=== PATIENT | female | born 1955 | race Caucasian/White ===

== ENCOUNTER 2022-05-03 06:22 | Day surgery (SDC) | payer MEDICARE, OTHER ==
[~2022-05-03] VITALS: Ht 170.2 cm; Wt 86.0 kg
[~2022-05-03 06:22] MED LIST: BUPROPION XL150 MG PO; CELEXA20 MG PO; CITALOPRAM HBR10 MG PO; DIFLUCAN150 MG PO; OSTERA TABLET1 EACH PO
--- NOTE | 2022-05-03 09:33 | NUR ---
05/03/22 0933 Nohelia Maher 0904 PT ARRIVED IN PACU SLEEPY. ABD SOFT. 0915 DR AT BEDSIDE TALKING WITH PT. 0930 RESTING. REU.
--- NOTE | 2022-05-03 10:07 | NUR ---
PT ALERT, ORIENTED AND HAS HAD PREVIOUS SCOPE-THOUGH OVER 10 YRS AGO. ALL QUESTIONS ASKED ANSWERED. PT REQUESTED PRAYER, WILL FOLLOW
--- NOTE | 2022-05-03 15:35 | OR ---
[facility] [address] [place], [place] [address] Signed DATE OF OPERATION: 05/03/2022 SURGEON: Tata Martinez MD PREOPERATIVE DIAGNOSIS: History of polyps, last colonoscopy greater than 10 years ago. POSTOPERATIVE DIAGNOSIS: Polyps x2 (proximal ascending and proximal descending colon). PROCEDURE: Total colonoscopy to cecum with cold morcellation polypectomy x2. ANESTHESIA: Intravenous sedation; fentanyl 100 mcg and Versed 8 mg. INDICATION: This 66-year-old white woman is a patient of Linda Cam and underwent colonoscopy greater than 10 years ago and was found to have polyps. She is currently symptom free. She understands the risk of bleeding, infection, and perforation related to screening colonoscopy and wished to proceed. FINDINGS: The prep was good. Complete colonoscopy was undertaken to the cecum without question. She had two small polyps, one in the proximal ascending colon and the other in the proximal descending colon. Both were excised with cold morcellation technique. There were no other findings of concern. DESCRIPTION OF PROCEDURE: The patient was brought to the endoscopy suite and placed in lateral decubitus position, given intravenous sedation to the point of slurred speech and nystagmus. Digital rectal examination showed external hemorrhoidal changes. An Olympus video colonoscope was passed in the rectum and manipulated throughout the colon ultimately intubating the cecum itself. The ileocecal valve and appendiceal orifice were normal. Scope was withdrawn and in the proximal ascending colon there was a small polyp, which was somewhat ambiguous in its appearance. Narrow band imaging confirmed it likely to be a polyp. It was excised completely with cold morcellation technique. Further withdrawal of the scope showed no abnormality into the proximal descending colon where clear and obvious small polyp was noted, this was excised with cold morcellation technique as well. Further withdrawal showed no other abnormality. Retroflexed view was normal. Electronically Signed By: TATA MARTINEZ MD 05/03/22 1535 PATIENT NAME: LINDA HEARN OPERATIVE REPORT DATE OF : 55 REPORT #: [id number] PHYSICIAN: TATA MARTINEZ MD PCP: LINDA CAM REPORT IS CONFIDENTIAL AND NOT TO BE RELEASED WITHOUT AUTHORIZATION [facility] [address] [place], [place] [address] Signed The scope was removed and the patient was taken to the recovery room in good condition. CONCLUDING DIAGNOSIS: Polyps x2. PLAN: Recommend repeat colonoscopy in 5 years, sooner if clinically indicated. She will return to the ongoing care of JASPAL Garnett. MD NEERU Friedman/MODL /[id number] cc: JASPAL Garnett Copies: LINDA CAM ~ Electronically Signed By: TATA MARTINEZ MD 05/03/22 1535 PATIENT NAME: LINDA HEARN OPERATIVE REPORT DATE OF : 55 REPORT #: [id number] PHYSICIAN: TATA MARTINEZ MD PCP: LINDA CAM REPORT IS CONFIDENTIAL AND NOT TO BE RELEASED WITHOUT AUTHORIZATION
--- NOTE | 2022-05-04 17:54 | PATH ---
[facility] [address] [place], [place] [address] Signed SPECIMEN(S): A ASCENDING/RIGHT COLON POLYP SPECIMEN(S): B PROXIMAL DESCENDING/LEFT COLON POLYP SPECIMEN SOURCE: A. ASCENDING/RIGHT COLON POLYP B. PROXIMAL DESCENDING/LEFT COLON POLYP CLINICAL HISTORY: Colonoscopy. History of polyps; surveillance. Post: Colon polyps x 2. FINAL PATHOLOGIC DIAGNOSIS: A. Colon, ascending/right, polyp, polypectomy: - Fragments of colonic mucosa with melanosis coli. - Negative for dysplasia or malignancy. B. Colon, proximal descending/left, polyp, polypectomy: - Fragments of tubular adenoma. - Negative for high-grade dysplasia or malignancy. COMMENT: Regarding specimen A: Multiple additional deeper levels were examined. NAL:cml:C2NR MICROSCOPIC EXAMINATION: Histologic sections of all submitted blocks are examined by light microscopy. These findings, together with the gross examination, support the pathologic diagnosis. GROSS DESCRIPTION: Two specimens are received in two containers labeled with "LW." A. The specimen, labeled "LW, 1," and designated on the requisition "ascending/right polypectomy," is received in formalin and consists of six fragments of pink-goddard tissue (0.3 cm in greatest dimension). The specimen is submitted entirely in cassette (A1). B. The specimen, labeled "LW, 2," and designated on the requisition "proximal descending/left polypectomy," is received in formalin and consists of eight fragments of pink-goddard tissue (0.2-0.3 cm in greatest dimension). The specimen is submitted entirely in cassette (B1). AC (under the direct supervision of a pathologist) The Gross Description was prepared using a voice recognition system. The report was reviewed for accuracy; however, sound-alike word errors, addition and/or deletions may occur. If there is any PATIENT NAME: LINDA HEARN PATHOLOGY DATE OF : 55 REPORT #: [id number] PHYSICIAN: OSIRIS WRIGHT PCP: LINDA RAMIREZ REPORT IS CONFIDENTIAL AND NOT TO BE RELEASED WITHOUT AUTHORIZATION [facility] [address] [place] [address] Signed question about this report, please contact Client Services. PERFORMING LABORATORY: The technical component was performed by [facility] [address] [address] (CLIA# [id number]). Professional interpretation was performed by [facility], [address] [address] (CLIA# [id number]). Diagnostician: Benita Kimble MD Pathologist Electronically Signed 05/04/2022 Copies: ~ PATIENT NAME: LINDA HEARN PATHOLOGY DATE OF : 55 REPORT #: [id number] PHYSICIAN: OSIRIS PATHOLOGY PCP: LINDA RAMIREZ REPORT IS CONFIDENTIAL AND NOT TO BE RELEASED WITHOUT AUTHORIZATION
== END 2022-05-03 09:50 | disposition home or self-care (01) ==
LOC: DS 06:22 → OPS 06:22 → DS 07:30 → OPS 07:30 → DS 05-28 08:15
PROVIDERS: ATTEND Surgery
PROC: 0DBM8ZX Excision of Descending Colon, Via Natural or Artificial Opening Endoscopic, Diagnostic (ICD-10-PCS; 2022-05-03)
PROC: 0DBK8ZX Excision of Ascending Colon, Via Natural or Artificial Opening Endoscopic, Diagnostic (ICD-10-PCS; principal; 2022-05-03 07:30)
DX: Z12.11 Encounter for screening for malignant neoplasm of colon (principal); D12.2 Benign neoplasm of ascending colon; D12.4 Benign neoplasm of descending colon; F41.9 Anxiety disorder, unspecified; Z88.5 Allergy status to narcotic agent; Z88.2 Allergy status to sulfonamides
CPT/HCPCS: 99153; G0500; J2250; J3010; J7121